=== PATIENT | male | born 1980 | race American Indian/Alaskan Native ===

== ENCOUNTER 2018-05-30 13:47 | Inpatient (IN) | payer MEDICAID ==
--- NOTE | 2018-05-30 14:18 | Emergency Department Report ---
Chief Complaint: Chest Pain Stated Complaint: CHEST PAIN/SOB Time Seen by Provider: 05/30/18 14:13 - HPI History of Present Illness: CARDIAC CATH RECENT WITH R HEART FAILURE CATH SHOWED NO OBSTRUCTION OF ARTERIES CP STARTED LAST PM PALPITATIONS WAS JUST DC 1 W AGO FROM HOSP IN [facility] ? NOK FATHER WHO IS UPSTAIRS WITH MOM WHO IS PT NO CIG NO ETOH NO DRUGS PMH CHF ASTHMA RX LOSARTAN SPIRONL. ASA FORGETS OTHERS TACHYCARDIA/TACHYPNEA CP SOB TO MAIN MSE screening note: Focused history and physical exam performed. Due to findings the following was ordered: ED Disposition for MSE Condition: Stable
[2018-05-30 14:50] LABS: Basophils # (Auto) 0.1 K/mm3 (0.0-0.1); Basophils % (Auto) 0.7 % (0.0-1.8); Eosinophils # (Auto) 0.1 K/mm3 (0.0-0.4); Eosinophils % (Auto) 1.7 % (0.0-4.3); Hematocrit 37.2 % (35.5-45.6); Lymphocytes % (Auto) 25.4 % (13.4-35.0); Mean Corpuscular HGB Conc 32 % (32-34); Mean Corpuscular Volume 83 fl (84-94); Monocytes # (Auto) 0.8 K/mm3 (0.0-0.8); Monocytes % (Auto) 10.4 % (0.0-7.3); Platelet Count 378 K/mm3 (140-440); Red Blood Count 4.51 M/mm3 (3.65-5.03); Red Cell Distribution Width 18.3 % (13.2-15.2)
[2018-05-30 14:58] LABS: Alanine Aminotransferase 27 units/L (7-56); Albumin 3.9 g/dL (3.9-5); BUN/Creatinine Ratio 12; Blood Urea Nitrogen 14 mg/dL (9-20); Calcium 8.9 mg/dL (8.4-10.2); Hemolysis Index 3
[2018-05-30] MEDS ORDERED: LASIX IV ONE (15:01)
--- NOTE | 2018-05-30 15:07 | Emergency Department Report ---
HPI - General Chief Complaint: Chest Pain Time Seen by Provider: 05/30/18 14:13 - HPI HPI: Room 18 The patient is a 37-year-old male presenting with a chief complaint of shortness of breath and chest pain. The patient states for the past week he's had s hortness of breath as well as an increased respiratory rate and elevated heart rate especially when lying down. Patient states he has had orthopnea and abdominal swelling. The patient states he had a cardiac catheterization performed in [place] 05/21/2018 that showed an EF of 20% but no blockages. The patient states he and his family drove up from [place] ~7 hours 1 week ago. The patient states he is on spironolactone and has been compliant Location: Lungs, see above Duration: [See above] Quality: Shortness of breath Severity: Moderate Modifying factors: [see above] Context: [see above] Mode of transportation: [not driving] ED Past Medical Hx - Past Medical History Previous Medical History?: Yes Hx Hypertension: Yes Hx Congestive Heart Failure: Yes Hx Asthma: Yes - Surgical History Past Surgical History?: Yes Hx Internal Defibrillator: Yes Additional Surgical History: cardiac cath 05/21/2018 - Family History Family history: no significant - Social History Smoking Status: Current Every Day Smoker (1 pack per day) Substance Use Type: None (denies illicit drug use) ED Review of Systems ROS: Stated complaint: CHEST PAIN/SOB Other details as noted in HPI Constitutional: denies: diaphoresis Eyes: denies: eye pain ENT: denies: throat pain Respiratory: orthopnea, shortness of breath Cardiovascular: chest pain Endocrine: no symptoms reported Gastrointestinal: abdominal pain Genitourinary: denies: dysuria Musculoskeletal: denies: back pain Neurological: denies: headache Physical Exam - Physical Exam Vital Signs: Vital Signs 05/30/18 14:13 Temperature 98.1 F Pulse Rate 104 H Respiratory 24 Rate Blood Pressure 146/115 O2 Sat by Pulse 97 Oximetry Physical Exam: GENERAL: The patient is well-developed well-nourished male lying on stretcher not appearing to be in acute distress. [] HEENT: Normocephalic. Atraumatic. Extraocular motions are intact. Patient has moist mucous membranes. NECK: Supple. No meningitic signs are noted. There is no adenopathy noted. CHEST/LUNGS: Crackles at the left base. There is no respiratory distress noted. HEART/CARDIOVASCULAR: Regular. There is no tachycardia. There is no gallop rub or murmur. ABDOMEN: Abdomen is soft, nontender. Patient has normal bowel sounds. There is no abdominal distention. SKIN: There is no rash. There is trace bilateral lower extremity pitting edema. There is no diaphoresis. NEURO: The patient is awake, alert, and oriented. The patient is cooperative. The patient has normal speech MUSCULOSKELETAL: There is no evidence of acute injury. ED Course Vital Signs 05/30/18 14:13 Temperature 98.1 F Pulse Rate 104 H Respiratory 24 Rate Blood Pressure 146/115 O2 Sat by Pulse 97 Oximetry ED Medical Decision Making - Lab Data Result diagrams: 05/30/18 14:25 05/30/18 14:25 Laboratory Tests 05/30/18 05/30/18 05/30/18 14:25 14:25 14:25 WBC 7.8 RBC 4.51 Hgb 12.0 Hct 37.2 MCV 83 L MCH 27 L MCHC 32 RDW 18.3 H Plt Count 378 Lymph % (Auto) 25.4 [place] % (Auto) 10.4 H Eos % (Auto) 1.7 Baso % (Auto) 0.7 Lymph # 2.0 [place] # 0.8 Eos # 0.1 Baso # 0.1 Seg Neutrophils % 61.8 Seg Neutrophils # 4.8 PT 13.3 INR 0.95 APTT 27.1 D-Dimer 238.43 H Sodium 141 Potassium 4.1 Chloride 107.8 H Carbon Dioxide 22 Anion Gap 15 BUN 14 Creatinine 1.2 Estimated GFR > 60 BUN/Creatinine Ratio 12 Glucose 131 H Calcium 8.9 Total Bilirubin 0.30 AST 19 ALT 27 Alkaline Phosphatase 78 Total Creatine Kinase 212 H Troponin T < 0.010 NT-Pro-B Natriuret Pep 2880 H Total Protein 6.7 Albumin 3.9 Albumin/Globulin Ratio 1.4 - EKG Data -: EKG Interpreted by Me EKG shows normal: sinus rhythm Rate: tachycardia (107 bpm) - EKG Data When compared to previous EKG there are: previous EKG unavailable Interpretation: nonspecific ST-T wave dereje (T-wave inversion in lead aVL) - Radiology Data Radiology results: image reviewed (chest x-ray) interpreted by me: Chest x-ray-no focal infiltrate, no pneumothorax - Differential Diagnosis CHF exacerbation, PE, pericarditis, GERD Critical care attestation.: If time is entered above; I have spent that time in minutes in the direct care of this critically ill patient, excluding procedure time. ED Disposition Clinical Impression: CHF exacerbation, Tachycardia Disposition: OP ADMIT IP TO THIS HOSP Is pt being admited?: Yes Does the pt Need Aspirin: Yes Condition: Fair Time of Disposition: 15:22 (hospitalist notified (Dr Lowe))
[2018-05-30 15:12] LABS: INR 0.95 (0.87-1.13)
[2018-05-30 15:13] LABS: Partial Thromboplastin Time 27.1 Sec. (24.2-36.6)
[2018-05-30] MEDS ORDERED: ASPIRIN PO ONE (15:23)
--- NOTE | 2018-05-30 15:55 | XRay Report ---
PROCEDURE: XR CHEST ROUTINE 2V TECHNIQUE: PA and lateral views of the chest were obtained. HISTORY: Chest Pain COMPARISONS: FINDINGS: Heart is enlarged. The pulmonary vasculature is not distended. No evidence of pulmonary edema or pleu ral effusion. No infiltrates or masses are identified. There is mild hyperinflation. Dual chamber pac emaker implanted on the left side of the chest. No acute bone abnormalities are identified. IMPRESSION: Cardiomegaly. Mild hyperinflation suggests underlying COPD. Dual-chamber pacemaker in place. No acute abnormalities are identified. This document is electronically signed by Hay Aldridge MD., May 30 2018 03:53:37 PM ET
[2018-05-30 16:07] LABS: Bilirubin,Urine NEG (Negative); Blood,Urine NEG (Negative); Color,Urine Straw (Yellow); RBC,Urine < 1.0 /HPF (0.0-6.0); Urobilinogen,Urine < 2.0 mg/dL (<2.0); WBC,Urine < 1.0 /HPF (0.0-6.0)
[2018-05-30] MEDS ORDERED: TYLENOL PO PRN (16:54)
[2018-05-30] MEDS ORDERED: SODIUM CHLORIDE FLUSH SYRINGE 10 ML IV PRN (16:54)
[2018-05-30] MEDS ORDERED: ZOFRAN IV PRN (16:54)
[2018-05-30] MEDS ORDERED: PROVENTIL IH PRN (16:54)
--- NOTE | 2018-05-30 16:54 | History and Physical Report ---
History of Present Illness Chief complaint: I ambrocio breathe History of present illness: 37 YO Male with Systolic CHF (EF 20%), HTN, Asthma, Obesity Hypoventilation, Noncompliant with CPAP, Nicotine Dependence presents to ED for evaluation. Pt resides in [place] and is visiting his local family. Pt has experienced short ness of breath over the past 7 days with worsening symptoms over the past 2 days. Pt acknowledges Orthopnea/PND, Decreased exercise tolerance, Dypsnea on exertion, Dypsnea at rest, Feeling bloated, leg edema, nonproductive cough, as well as chest discomfort after coughing episodes. Pt is S/P Cardiac cath with subsequent pacemaker placement 1 week ago in [place]. Pt transported to [facility] ED via private vehicle. Pt seen and evaluated in ED and found to have CHF Decompensation, Acute Respiratory Failure. Cardiology consulted in ED. Pt admitted to telemetry and initiated on CHF protocol. Pt found to have elevated D dimer in ED. CTA chest ordered and is pending at time of admission. No prior admissions for review. No listed medication for reconciliation. Pt denies fever, chills, palpitations, NVD, productive cough, BRBPR, hemoptysis. Pt acknowledges prolonged travel over the past 1 week. Past History Past Medical History: heart failure, other (Obesity Hypoventilation Syndrome, HTN) Past Surgical History: Other (cardiac cath, ICD placement) Social history: single, smoking Family history: hypertension Medications and Allergies Allergies Allergy/AdvReac Type Severity Reaction Status Date / Time No Known Allergies Allergy Verified 05/30/18 14:17 Review of Systems Constitutional: no weight loss, no weight gain, no fever, no chills Ears, nose, mouth and throat: no ear pain, no ear discharge, no tinnitis, no decreased hearing, no nose pain Cardiovascular: orthopnea, shortness of breath, dyspnea on exertion, paroxysmal nocturnal dyspnea, high blood pressure, leg edema, decreased exercise tolerance, no chest pain, no palpitations, no rapid/irregular heart beat Respiratory: no cough, no cough with sputum, no excessive sputum, no hemoptysis Gastrointestinal: no abdominal pain, no nausea, no vomiting, no diarrhea, no constipation Genitourinary Male: no hematuria, no flank pain, no discharge, no urinary frequency, no urinary hesitancy Rectal: no pain, no incontinence, no bleeding Musculoskeletal: no neck stiffness, no neck pain, no shooting arm pain, no arm numbness/tingling, no low back pain, no shooting leg pain Integumentary: no rash, no pruritis, no redness, no sores, no wounds Neurological: no transient paralysis, no paralysis, no weakness, no parathesias, no numbness, no tingling Psychiatric: no anxiety, no memory loss, no change in sleep habits, no sleep disturbances, no insomnia, no hypersomnia Hematologic/Lymphatic: no easy bruising, no easy bleeding Allergic/Immunologic: no urticaria, no allergic rhinitis, no wheezing Exam - Constitutional Vitals: Temp Pulse Resp BP Pulse Ox 98.5 F 101 H 29 H 155/111 98 05/30/18 15:43 05/30/18 15:43 05/30/18 15:43 05/30/18 15:43 05/30/18 15:43 General appearance: Present: mild distress - EENT Eyes: Present: PERRL ENT: hearing intact, clear oral mucosa - Neck Neck: Present: supple, normal ROM - Respiratory Respiratory effort: normal Respiratory: bilateral: diminished, rhonchi - Cardiovascular Heart Sounds: Present: S1 & S2. Absent: rub, click - Extremities Extremities: pulses symmetrical Extremity abnormal: edema Peripheral Pulses: within normal limits - Abdominal General gastrointestinal: Present: soft, non-tender, non-distended, normal bowel sounds Male genitourinary: Present: normal - Integumentary Integumentary: Present: clear, warm, dry - Musculoskeletal Musculoskeletal: gait normal, strength equal bilaterally - Psychiatric Psychiatric: appropriate mood/affect, intact judgment & insight - Neurologic Neurologic: CNII-XII intact, moves all extremities Results - Labs CBC & Chem 7: 05/30/18 14:25 05/30/18 14:25 Labs: Abnormal lab results 05/30/18 05/30/18 05/30/18 Range/Units 14:25 14:25 14:25 MCV 83 L (84-94) fl MCH 27 L (28-32) pg RDW 18.3 H (13.2-15.2) % [place] % (Auto) 10.4 H (0.0-7.3) % D-Dimer 238.43 H (0-234) ng/mlDDU Chloride 107.8 H (98-107) mmol/L Glucose 131 H (75-100) mg/dL Total Creatine Kinase 212 H (55-170) units/L NT-Pro-B Natriuret Pep 2880 H (0-450) pg/mL Assessment and Plan - Patient Problems (1) Respiratory failure Status: Acute Qualifiers: Chronicity: acute Respiratory failure complication: hypoxia Qualified Code(s): J96.01 - Acute respiratory failure with hypoxia Plan to address problem: Supplemental oxygen, nebulizer therapy, NIPPV as clinically indicated, pulse oximetry, chest x ray, CTA chest, D dimer, (2) Obesity hypoventilation syndrome Status: Acute Plan to address problem: supplemental oxygen, nebulizer therapy, NIPPV, increased physical activity/ balanced diet at discharge (3) HTN (hypertension) Status: Acute Qualifiers: Hypertension type: essential hypertension Qualified Code(s): I10 - E ssential (primary) hypertension Plan to address problem: Monitor bp q shift, continue prehospital antihypertensive therapy, (4) CHF exacerbation Status: Acute Qualifiers: Heart failure type: systolic Qualified Code(s): I50.23 - Acute on chronic systolic (congestive) heart failure Plan to address problem: CHF Protocol: Admit to telemetry, Strict I/O, Daily weight, monitor uop q shift, afterload reduction, YAW Inhibitior, B shane therapy, cardiology consulted in ED, diuresis, supplemental oxygen. (5) DVT prophylaxis Status: Acute Plan to address problem: SCD to BLE while in bed, prophylactic lovenox.
[2018-05-30] MEDS ORDERED: APRESOLINE IV PRN (17:29)
--- NOTE | 2018-05-30 18:20 | Cat Scan Report ---
PROCEDURE: CT ANGIO CHEST TECHNIQUE: Computerized tomographic angiography of the chest was performed after the IV injection of iodinated nonionic contrast including image processing. The image data was postprocessed using 2-di mensional multiplanar reformatted (MPR) and 3-dimensional (MIP and/or volume rendered) techniques. Au tomated exposure control, adjustment of mA and/or kV according to patient size, or iterative reconstr uction dose optimization techniques were utilized. HISTORY: dypsnea' COMPARISONS: None . FINDINGS: Heart and pericardium: Left-sided AICD noted. Thoracic aorta: Normal. Pulmonary vasculature: No evidence for acute pulmonary embolus. Lymph nodes: No enlarged thoracic lymph nodes. Lungs: Normal. Pleural space: No effusion, thickening, or pneumothorax. Musculoskeletal structures: No significant abnormality. Upper abdominal structures: Multiple gallstones visualized. No CT evidence for acute cholecystitis. IMPRESSION: No evidence for acute pulmonary embolus. Multiple gallstones. This document is electronically signed by Vincent Mcdonough MD., May 30 2018 06:18:36 PM ET
[2018-05-30] MEDS: ZESTRIL PO SCH (18:28)
[2018-05-30] MEDS: LASIX IV SCH (18:28)
[2018-05-30 18:53] LABS: Free T4 (Free Thyroxine) 1.11 ng/dL (0.76-1.46)
[2018-05-30] MEDS ORDERED: PERCOCET 5/325 PO ONE (19:42)
[2018-05-30] MEDS ORDERED: PERCOCET 5/325 ONE (19:54)
[2018-05-30] MEDS ORDERED: LOPRESSOR ONE (22:36)
[2018-05-30] MEDS ORDERED: LOVENOX SUB-Q ONE (22:37)
[2018-05-30] MEDS: LOPRESSOR PO SCH (22:58)
[2018-05-30] MEDS: LOVENOX SUB-Q SCH (22:59)
[2018-05-30] MEDS: SODIUM CHLORIDE FLUSH SYRINGE 10 ML IV SCH (22:59)
[2018-05-31 05:26] LABS: BUN/Creatinine Ratio 11; Blood Urea Nitrogen 17 mg/dL (9-20); Calcium 8.9 mg/dL (8.4-10.2); Hemolysis Index 6
[2018-05-31] MEDS: LASIX IV SCH ×2 (07:10→17:57)
--- NOTE | 2018-05-31 11:42 | Progress Note ---
Assessment and Plan Assessment and plan: Acute hypoxemic respiratory failure. Etiology is multifactorial secondary to COPD exacerbation, CHF exacerbation and JOSE ANTONIO/OHS. Chest x-ray reveals cardiomegaly with mild hyperinflation suggestive of underlying COPD. Dual- chamber pacemaker in place. Patient does have Elevated d-dimer but CTA is negative for PE. Continue O2 and BiPAP as clinically indicated. Acute on chronic systolic heart failure. EF reported at 20%. Obtain old records from [place]. Strict I/O, Daily weight, monitor uop q shift, afterload reduction, YAW Inhibitior, B shane therapy, cardiology consulted in ED, diuresis, supplemental oxygen. Acute COPD exacerbation. Add low-dose systemic steroids, continue bronchodilat ors/nebulizer treatment OHS/JOSE ANTONIO. supplemental oxygen, nebulizer therapy, NIPPV, increased physical activity/ balanced diet at discharge Hypertension. Continue and Test medications. Tobacco abuse. Counseled on tobacco cessation. History Interval history: 37 YO Male with Systolic CHF (EF 20%), HTN, Asthma, Obesity Hypoventilation, Noncompliant with CPAP, Nicotine Dependence presents to ED for evaluation. Pt resides in [place] and is visiting his local family. Pt has experienced shortness of breath over the past 7 days with worsening symptoms over the past 2 days. Pt acknowledges Orthopnea/PND, Decreased exercise tolerance, Dypsnea on exertion, Dypsnea at rest, Feeling bloated, leg edema, nonproductive cough, as well as chest discomfort after coughing episodes. Pt is S/P Cardiac cath with subsequent pacemaker placement 1 week ago in [place]. Patient still complains of chest pain and shortness of breath since admission. Hospitalist Physical - Constitutional Vitals: Temp Pulse Resp BP Pulse Ox 98.5 F 102 H 20 147/82 100 05/31/18 09:31 05/31/18 09:24 05/31/18 09:24 05/31/18 09:24 05/31/18 09:24 General appearance: Present: no acute distress - EENT Eyes: Present: PERRL, EOM intact ENT: hearing intact, clear oral mucosa, dentition normal - Neck Neck: Present: supple, normal ROM - Respiratory Respiratory effort: normal Respiratory: bilateral: diminished, rales - Cardiovascular Rhythm: regular Heart Sounds: Present: S1 & S2. Absent: gallop, rub - Extremities Extremities: no ischemia, No edema, Full ROM - Abdominal General gastrointestinal: soft, non-tender, non-distended, normal bowel sounds - Integumentary Integumentary: Present: clear, warm, dry - Neurologic Neurologic: CNII-XII intact, moves all extremities Results - Labs CBC & Chem 7: 05/30/18 14:25 05/31/18 04:12 Labs: Laboratory Last Values WBC 7.8 K/mm3 (4.5-11.0) 05/30/18 14:25 RBC 4.51 M/mm3 (3.65-5.03) 05/30/18 14:25 Hgb 12.0 gm/dl (11.8-15.2) 05/30/18 14:25 Hct 37.2 % (35.5-45.6) 05/30/18 14:25 MCV 83 fl (84-94) L 05/30/18 14:25 MCH 27 pg (28-32) L 05/30/18 14:25 MCHC 32 % (32-34) 05/30/18 14:25 RDW 18.3 % (13.2-15.2) H 05/30/18 14:25 Plt Count 378 K/mm3 (140-440) 05/30/18 14:25 Lymph % (Auto) 25.4 % (13.4-35.0) 05/30/18 14:25 [place] % (Auto) 10.4 % (0.0-7.3) H 05/30/18 14:25 Eos % (Auto) 1.7 % (0.0-4.3) 05/30/18 14:25 Baso % (Auto) 0.7 % (0.0-1.8) 05/30/18 14:25 Lymph # 2.0 K/mm3 (1.2-5.4) 05/30/18 14:25 [place] # 0.8 K/mm3 (0.0-0.8) 05/30/18 14:25 Eos # 0.1 K/mm3 (0.0-0.4) 05/30/18 14:25 Baso # 0.1 K/mm3 (0.0-0.1) 05/30/18 14:25 Seg Neutrophils % 61.8 % (40.0-70.0) 05/30/18 14:25 Seg Neutrophils # 4.8 K/mm3 (1.8-7.7) 05/30/18 14:25 PT 13.3 Sec. (12.2-14.9) 05/30/18 14:25 INR 0.95 (0.87-1.13) 05/30/18 14:25 APTT 27.1 Sec. (24.2-36.6) 05/30/18 14:25 D-Dimer 238.43 ng/mlDDU (0-234) H 05/30/18 14:25 Sodium 143 mmol/L (137-145) 05/31/18 04:12 Potassium 3.7 mmol/L (3.6-5.0) 05/31/18 04:12 Chloride 105.5 mmol/L (98-107) 05/31/18 04:12 Carbon Dioxide 24 mmol/L (22-30) 05/31/18 04:12 Anion Gap 17 mmol/L 05/31/18 04:12 BUN 17 mg/dL (9-20) 05/31/18 04:12 Creatinine 1.5 mg/dL (0.8-1.5) 05/31/18 04:12 Estimated GFR > 60 ml/min 05/31/18 04:12 BUN/Creatinine Ratio 11 % 05/31/18 04:12 Glucose 155 mg/dL (75-100) H 05/31/18 04:12 POC Glucose 114 (70-105) H 05/31/18 09:17 Calcium 8.9 mg/dL (8.4-10.2) 05/31/18 04:12 Magnesium 2.10 mg/dL (1.7-2.3) 05/30/18 17:32 Total Bilirubin 0.30 mg/dL (0.1-1.2) 05/30/18 14:25 AST 19 units/L (5-40) 05/30/18 14:25 ALT 27 units/L (7-56) 05/30/18 14:25 Alkaline Phosphatase 78 units/L (35-129) 05/30/18 14:25 Total Creatine Kinase 212 units/L (55-170) H 05/30/18 14:25 Troponin T < 0.010 ng/mL (0.00-0.029) 05/30/18 19:16 NT-Pro-B Natriuret Pep 2880 pg/mL (0-450) H 05/30/18 14:25 Total Protein 6.7 g/dL (6.3-8.2) 05/30/18 14:25 Albumin 3.9 g/dL (3.9-5) 05/30/18 14:25 Albumin/Globulin Ratio 1.4 % 05/30/18 14:25 TSH 6.620 mlU/mL (0.270-4.200) H 05/30/18 17:32 Free T4 1.11 ng/dL (0.76-1.46) 05/30/18 17:32 Urine Color Straw (Yellow) 05/30/18 15:52 Urine Turbidity Clear (Clear) 05/30/18 15:52 Urine pH 6.0 (5.0-7.0) 05/30/18 15:52 Ur Specific [place] 1.008 (1.003-1.030) 05/30/18 15:52 Urine Protein 100 mg/dl mg/dL (Negative) 05/30/18 15:52 Urine Glucose (UA) Neg mg/dL (Negative) 05/30/18 15:52 Urine Ketones Neg mg/dL (Negative) 05/30/18 15:52 Urine Blood Neg (Negative) 05/30/18 15:52 Urine Nitrite Neg (Negative) 05/30/18 15:52 Urine Bilirubin Neg (Negative) 05/30/18 15:52 Urine Urobilinogen < 2.0 mg/dL (<2.0) 05/30/18 15:52 Ur Leukocyte Esterase Neg (Negative) 05/30/18 15:52 Urine WBC (Auto) < 1.0 /HPF (0.0-6.0) 05/30/18 15:52 Urine RBC (Auto) < 1.0 /HPF (0.0-6.0) 05/30/18 15:52 Active Medications - Current Medications Current Medications: Generic Name Dose Route Start Last Admin Trade Name Freq PRN Reason Stop Dose Admin Acetaminophen 650 mg 05/30/18 16:54 Tylenol PO Q4H PRN Pain MILD(1-3)/Fever >100.5/[place] Albuterol 2.5 mg 05/30/18 16:54 Proventil IH Q4H PRN Shortness Of Breath Enoxaparin Sodium 40 mg 05/30/18 22:00 05/30/18 22:59 Lovenox SUB-Q 40 mg QDAY@2200 [place] Administration Furosemide 20 mg 05/30/18 18:00 05/31/18 07:10 Lasix IV 20 mg BID@0600,1800 [place] Administration Hydralazine HCl 10 mg 05/30/18 17:29 Apresoline IV Q8H PRN SBP > 150 Lisinopril 5 mg 05/30/18 18:00 05/30/18 18:28 Zestril PO 5 mg QDAY [place] Administration Metoprolol Tartrate 12.5 mg 05/30/18 22:00 05/30/18 22:58 Lopressor PO 12.5 mg BID [place] Administration Ondansetron HCl 4 mg 05/30/18 16:54 Zofran IV Q8H PRN Nausea And Vomiting Sodium Chloride 10 ml 05/30/18 22:00 05/30/18 22:59 Sodium Chloride Flush Syringe 10 Ml IV 10 ml BID [place]ON Administration Sodium Chloride 10 ml 05/30/18 16:54 Sodium Chloride Flush Syringe 10 Ml IV PRN PRN LINE FLUSH
[2018-05-31] MEDS: LOPRESSOR PO SCH ×2 (11:51→22:12)
[2018-05-31] MEDS: ZESTRIL PO SCH (11:51)
[2018-05-31] MEDS: SODIUM CHLORIDE FLUSH SYRINGE 10 ML IV SCH ×2 (11:52→22:13)
--- NOTE | 2018-05-31 12:41 | Consultation ---
History of Present Illness Consult date: 05/31/18 Consult reason: congestive heart failure History of present illness: 57 year old -[place] male presenting with shortness of breath. Patient was transported from [place] and is status post a cardiac cath which was done the week ago followed by insertion of ICD. Chest external presentation shows evidence of COPD but no overt signs of heart failure. Past History Past Medical History: heart failure, other (Obesity Hypoventilation Syndrome, HTN) Past Surgical History: Other (cardiac cath, ICD placement) Social history: single, smoking Family history: hypertension Medications and Allergies Allergies Allergy/AdvReac Type Severity Reaction Status Date / Time No Known Allergies Allergy Verified 05/30/18 14:17 Active Meds: Active Medications Acetaminophen (Tylenol) 650 mg PO Q4H PRN PRN Reason: Pain MILD(1-3)/Fever >100.5/[place] Albuterol (Proventil) 2.5 mg IH Q4H PRN PRN Reason: Shortness Of Breath Enoxaparin Sodium (Lovenox) 40 mg SUB-Q QDAY@2200 [facility] Last Admin: 05/30/18 22:59 Dose: 40 mg Documented by: Furosemide (Lasix) 20 mg IV BID@0600,1800 [facility] Last Admin: 05/31/18 07:10 Dose: 20 mg Documented by: Hydralazine HCl (Apresoline) 10 mg IV Q8H PRN PRN Reason: SBP > 150 Lisinopril (Zestril) 5 mg PO QDAY [facility] Last Admin: 05/31/18 11:51 Dose: 5 mg Documented by: Methylprednisolone Sodium Succinate (Solu-Medrol) 40 mg IV Q12H [facility] Metoprolol Tartrate (Lopressor) 12.5 mg PO BID [facility] Last Admin: 05/31/18 11:51 Dose: 12.5 mg Documented by: Ondansetron HCl (Zofran) 4 mg IV Q8H PRN PRN Reason: Nausea And Vomiting Sodium Chloride (Sodium Chloride Flush Syringe 10 Ml) 10 ml IV BID [facility] Last Admin: 05/31/18 11:52 Dose: 10 ml Documented by: Sodium Chloride (Sodium Chloride Flush Syringe 10 Ml) 10 ml IV PRN PRN PRN Reason: LINE FLUSH Review of Systems Cardiovascular: orthopnea Physical Examination Vital Signs Temp Pulse Resp BP Pulse Ox 98.1 F 104 H 24 146/115 97 05/30/18 14:13 05/30/18 14:13 05/30/18 14:13 05/30/18 14:13 05/30/18 14:13 General appearance: no acute distress, well-nourished HEENT: Positive: PERRL, Mucus Membranes Moist Neck: Positive: neck supple, trachea midline Cardiac: Positive: Reg Rate and Rhythm, S1/S2. Negative: Audible Murmur Lungs: Positive: clear to auscultation, Normal Breath Sounds Neuro: Positive: Grossly Intact Abdomen: Positive: Soft, Active Bowel Sounds. Negative: Tender, Distended Male genitourinary: Positive: normal Skin: Positive: Clear Incision: Cardiac Cath Site Musculoskeletal: No Pain, Normal Range of Motion Extremities: Present: normal. Absent: edema Results 05/30/18 14:25 05/31/18 04:12 Cardiac Enzymes 05/30/18 Range/Units 14:25 AST 19 (5-40) units/L Coagulation 05/30/18 Range/Units 14:25 PT 13.3 (12.2-14.9) Sec. INR 0.95 (0.87-1.13) APTT 27.1 (24.2-36.6) Sec. CBC 05/30/18 Range/Units 14:25 WBC 7.8 (4.5-11.0) K/mm3 RBC 4.51 (3.65-5.03) M/mm3 Hgb 12.0 (11.8-15.2) gm/dl Hct 37.2 (35.5-45.6) % Plt Count 378 (140-440) K/mm3 Lymph # 2.0 (1.2-5.4) K/mm3 [place] # 0.8 (0.0-0.8) K/mm3 Eos # 0.1 (0.0-0.4) K/mm3 Baso # 0.1 (0.0-0.1) K/mm3 Comprehensive Metabolic Panel 05/30/18 05/31/18 Range/Units 14:25 04:12 Sodium 141 143 (137-145) mmol/L Potassium 4.1 3.7 (3.6-5.0) mmol/L Chloride 107.8 H 105.5 (98-107) mmol/L Carbon Dioxide 22 24 (22-30) mmol/L BUN 14 17 (9-20) mg/dL Creatinine 1.2 1.5 (0.8-1.5) mg/dL Glucose 131 H 155 H (75-100) mg/dL Calcium 8.9 8.9 (8.4-10.2) mg/dL AST 19 (5-40) units/L ALT 27 (7-56) units/L Alkaline Phosphatase 78 (35-129) units/L Total Protein 6.7 (6.3-8.2) g/dL Albumin 3.9 (3.9-5) g/dL EKG interpretations - Telemetry EKG Rhythm: Sinus Rhythm Assessment and Plan 1. Chronic combined systolic and diastolic heart failure 2. Dilated Non-ischemic cardiomyopathy LV ejection fraction 20% 3. Status post a ICD in October 4. Chronic obstructive pulmonary disease 5. Sleep apnea not compliant on CPAP machine 6. Essential hypertension 7. Obesity Plan. Patient is currently stable and denies any cardiac symptoms. We will need to obtain all records from his hospitalization in [place]. We shall obtain an echocardiogram. to assess global and regional LV function
[2018-05-31] MEDS: SOLU-Medrol IV SCH (14:43)
[2018-05-31] MEDS: LOVENOX SUB-Q SCH (22:13)
[2018-06-01] MEDS: SOLU-Medrol IV SCH ×2 (01:34→15:03)
[2018-06-01] MEDS: LASIX IV SCH ×2 (05:49→19:22)
--- NOTE | 2018-06-01 10:00 | Progress Note ---
Assessment and Plan Assessment and plan: Acute hypoxemic respiratory failure. Etiology is multifactorial secondary to COPD exacerbation, CHF exacerbation and JOSE ANTONIO/OHS. Chest x-ray reveals cardiomegaly with mild hyperinflation suggestive of underlying COPD. Dual- chamber pacemaker in place. Patient does have Elevated d-dimer but CTA is negative for PE. Continue O2 and BiPAP as clinically indicated. Acute on chronic systolic heart failure. EF reported at 20%. Obtain old records from [place]. Patient was seen at [facility] in [facility]. Strict I/O, Daily weight, monitor uop q shift, afterload reduction, YAW Inhibitior, B shane therapy, continue diuresis, supplemental oxygen. Cardiology consulted AICD. Patient with recent AICD insertion ago in [place] Acute COPD exacerbation. Continue systemic steroids, bronchodilators/nebulizer treatments OHS/JOSE ANTONIO. supplemental oxygen, nebulizer therapy, NIPPV, increased physical activity/ balanced diet at discharge Hypertension. Continue and Test medications. Tobacco abuse. Counseled on tobacco cessation. History Interval history: 37 YO Male with Systolic CHF (EF 20%), HTN, Asthma, Obesity Hypoventilation, Noncompliant with CPAP, Nicotine Dependence presents to ED for evaluation. Pt resides in [place] and is visiting his local family. Pt has experienced shortness of breath over the past 7 days with worsening symptoms over the past 2 days. Pt acknowledges Orthopnea/PND, Decreased exercise tolerance, Dypsnea on exertion, Dypsnea at rest, Feeling bloated, leg edema, nonproductive cough, as well as chest discomfort after coughing episodes. Pt is S/P Cardiac cath with subsequent pacemaker placement 1 week ago in [place]. Patient still complains of chest pain and shortness of breath since admission. Hospitalist Physical - Constitutional Vitals: Temp Pulse Resp BP Pulse Ox 98.1 F 93 H 20 130/94 99 06/01/18 03:31 06/01/18 07:42 06/01/18 03:31 06/01/18 07:42 06/01/18 07:42 General appearance: Present: no acute distress, well-nourished - EENT Eyes: Present: PERRL, EOM intact ENT: hearing intact, clear oral mucosa, dentition normal - Neck Neck: Present: supple, normal ROM - Respiratory Respiratory effort: normal Respiratory: bilateral: CTA - Cardiovascular Rhythm: regular Heart Sounds: Present: S1 & S2. Absent: gallop, rub - Extremities Extremities: no ischemia, No edema, Full ROM - Abdominal General gastrointestinal: soft, non-tender, non-distended, normal bowel sounds - Integumentary Integumentary: Present: clear, warm, dry - Neurologic Neurologic: CNII-XII intact, moves all extremities Results - Labs CBC & Chem 7: 05/30/18 14:25 05/31/18 04:12 Labs: Laboratory Last Values WBC 7.8 K/mm3 (4.5-11.0) 05/30/18 14:25 RBC 4.51 M/mm3 (3.65-5.03) 05/30/18 14:25 Hgb 12.0 gm/dl (11.8-15.2) 05/30/18 14:25 Hct 37.2 % (35.5-45.6) 05/30/18 14:25 MCV 83 fl (84-94) L 05/30/18 14:25 MCH 27 pg (28-32) L 05/30/18 14:25 MCHC 32 % (32-34) 05/30/18 14:25 RDW 18.3 % (13.2-15.2) H 05/30/18 14:25 Plt Count 378 K/mm3 (140-440) 05/30/18 14:25 Lymph % (Auto) 25.4 % (13.4-35.0) 05/30/18 14:25 [place] % (Auto) 10.4 % (0.0-7.3) H 05/30/18 14:25 Eos % (Auto) 1.7 % (0.0-4.3) 05/30/18 14:25 Baso % (Auto) 0.7 % (0.0-1.8) 05/30/18 14:25 Lymph # 2.0 K/mm3 (1.2-5.4) 05/30/18 14:25 [place] # 0.8 K/mm3 (0.0-0.8) 05/30/18 14:25 Eos # 0.1 K/mm3 (0.0-0.4) 05/30/18 14:25 Baso # 0.1 K/mm3 (0.0-0.1) 05/30/18 14:25 Seg Neutrophils % 61.8 % (40.0-70.0) 05/30/18 14:25 Seg Neutrophils # 4.8 K/mm3 (1.8-7.7) 05/30/18 14:25 PT 13.3 Sec. (12.2-14.9) 05/30/18 14:25 INR 0.95 (0.87-1.13) 05/30/18 14:25 APTT 27.1 Sec. (24.2-36.6) 05/30/18 14:25 D-Dimer 238.43 ng/mlDDU (0-234) H 05/30/18 14:25 Sodium 143 mmol/L (137-145) 05/31/18 04:12 Potassium 3.7 mmol/L (3.6-5.0) 05/31/18 04:12 Chloride 105.5 mmol/L (98-107) 05/31/18 04:12 Carbon Dioxide 24 mmol/L (22-30) 05/31/18 04:12 Anion Gap 17 mmol/L 05/31/18 04:12 BUN 17 mg/dL (9-20) 05/31/18 04:12 Creatinine 1.5 mg/dL (0.8-1.5) 05/31/18 04:12 Estimated GFR > 60 ml/min 05/31/18 04:12 BUN/Creatinine Ratio 11 % 05/31/18 04:12 Glucose 155 mg/dL (75-100) H 05/31/18 04:12 POC Glucose 272 (70-105) H 05/31/18 22:21 Calcium 8.9 mg/dL (8.4-10.2) 05/31/18 04:12 Magnesium 2.10 mg/dL (1.7-2.3) 05/30/18 17:32 Total Bilirubin 0.30 mg/dL (0.1-1.2) 05/30/18 14:25 AST 19 units/L (5-40) 05/30/18 14:25 ALT 27 units/L (7-56) 05/30/18 14:25 Alkaline Phosphatase 78 units/L (35-129) 05/30/18 14:25 Total Creatine Kinase 212 units/L (55-170) H 05/30/18 14:25 Troponin T < 0.010 ng/mL (0.00-0.029) 05/30/18 19:16 NT-Pro-B Natriuret Pep 2880 pg/mL (0-450) H 05/30/18 14:25 Total Protein 6.7 g/dL (6.3-8.2) 05/30/18 14:25 Albumin 3.9 g/dL (3.9-5) 05/30/18 14:25 Albumin/Globulin Ratio 1.4 % 05/30/18 14:25 TSH 6.620 mlU/mL (0.270-4.200) H 05/30/18 17:32 Free T4 1.11 ng/dL (0.76-1.46) 05/30/18 17:32 Urine Color Straw (Yellow) 05/30/18 15:52 Urine Turbidity Clear (Clear) 05/30/18 15:52 Urine pH 6.0 (5.0-7.0) 05/30/18 15:52 Ur Specific [place] 1.008 (1.003-1.030) 05/30/18 15:52 Urine Protein 100 mg/dl mg/dL (Negative) 05/30/18 15:52 Urine Glucose (UA) Neg mg/dL (Negative) 05/30/18 15:52 Urine Ketones Neg mg/dL (Negative) 05/30/18 15:52 Urine Blood Neg (Negative) 05/30/18 15:52 Urine Nitrite Neg (Negative) 05/30/18 15:52 Urine Bilirubin Neg (Negative) 05/30/18 15:52 Urine Urobilinogen < 2.0 mg/dL (<2.0) 05/30/18 15:52 Ur Leukocyte Esterase Neg (Negative) 05/30/18 15:52 Urine WBC (Auto) < 1.0 /HPF (0.0-6.0) 05/30/18 15:52 Urine RBC (Auto) < 1.0 /HPF (0.0-6.0) 05/30/18 15:52 Active Medications - Current Medications Current Medications: Generic Name Dose Route Start Last Admin Trade Name Freq PRN Reason Stop Dose Admin Acetaminophen 650 mg 05/30/18 16:54 Tylenol PO Q4H PRN Pain MILD(1-3)/Fever >100.5/STAFFORD Albuterol 2.5 mg 05/30/18 16:54 Proventil IH Q4H PRN Shortness Of Breath Enoxaparin Sodium 40 mg 05/30/18 22:00 05/31/18 22:13 Lovenox SUB-Q 40 mg QDAY@2200 NAPOLEON Administration Furosemide 20 mg 05/30/18 18:00 06/01/18 05:49 Lasix IV 20 mg BID@0600,1800 NAPOLEON Administration Hydralazine HCl 10 mg 05/30/18 17:29 Apresoline IV Q8H PRN SBP > 150 Lisinopril 5 mg 05/30/18 18:00 05/31/18 11:51 Zestril PO 5 mg QDAY NAPOLEON Administration Methylprednisolone Sodium Succinate 40 mg 05/31/18 14:00 06/01/18 01:34 Solu-Medrol IV 40 mg Q12H NAPOLEON Administration Metoprolol Tartrate 12.5 mg 05/30/18 22:00 05/31/18 22:12 Lopressor PO 12.5 mg BID NAPOLEON Administration Ondansetron HCl 4 mg 05/30/18 16:54 Zofran IV Q8H PRN Nausea And Vomiting Sodium Chloride 10 ml 05/30/18 22:00 05/31/18 22:13 Sodium Chloride Flush Syringe 10 Ml IV 10 ml BID NAPOLEON Administration Sodium Chloride 10 ml 05/30/18 16:54 Sodium Chloride Flush Syringe 10 Ml IV PRN PRN LINE FLUSH
[2018-06-01] MEDS: LOPRESSOR PO SCH ×2 (11:05→22:15)
[2018-06-01] MEDS: ZESTRIL PO SCH (11:05)
[2018-06-01] MEDS: SODIUM CHLORIDE FLUSH SYRINGE 10 ML IV SCH ×2 (11:07→22:17)
--- NOTE | 2018-06-01 12:18 | Progress Note ---
Assessment and Plan Acute systolic heart failure s/t noncompliance with medications no evidence of PE by CTA Nonischemic Cardiomyopathy EF 20% per pt Presence of AICD Hypertension Diabetes mellitus Await records from [place]. Patient reports extensive invasive cardiac workup 1 week ago while hospitalized at a hospital in [place]. Continue medical therapy for nonischemic cardiomyopathy. Subjective Date of service: 06/01/18 Interval history: Patient appears anxious. Reports shortness of breath and palpitations. No events on telemetry overnight. Stable sinus rhythm. Objective Vital Signs Temp Pulse Resp BP Pulse Ox 06/01/18 07:42 93 H 130/94 99 06/01/18 05:00 95 H 06/01/18 03:31 98.1 F 92 H 20 125/87 90 05/31/18 23:37 98.5 F 102 H 22 146/101 95 05/31/18 23:20 98 H 28 H 98 05/31/18 23:00 99 H 96 05/31/18 22:12 96 H 154/84 05/31/18 22:02 96 05/31/18 20:37 97.2 F L 96 H 20 154/84 96 05/31/18 17:20 98.3 F 103 H 20 129/100 84 05/31/18 15:47 102 H - Physical Examination General: No Apparent Distress HEENT: Positive: PERRL Neck: Positive: trachea midline Cardiac: Positive: Reg Rate and Rhythm Lungs: Positive: Decreased Breath Sounds Neuro: Positive: Grossly Intact Abdomen: Positive: Soft, Active Bowel Sounds Extremities: Absent: edema
[2018-06-01] MEDS: LOVENOX SUB-Q SCH (22:15)
[2018-06-01] MEDS: HumaLOG SUB-Q SCH (22:16)
[2018-06-02] MEDS: SOLU-Medrol IV SCH (01:41)
[2018-06-02] MEDS: LASIX IV SCH (06:03)
[2018-06-02 06:45] LABS: Hemoglobin 12.1 gm/dl (11.8-15.2); Mean Corpuscular HGB Conc 32 % (32-34); Mean Corpuscular Volume 82 fl (84-94); Platelet Count 463 K/mm3 (140-440); Red Blood Count 4.63 M/mm3 (3.65-5.03); Red Cell Distribution Width 18.5 % (13.2-15.2)
[2018-06-02 07:12] LABS: BUN/Creatinine Ratio 15; Blood Urea Nitrogen 21 mg/dL (9-20); Calcium 8.7 mg/dL (8.4-10.2); Hemolysis Index 23
[2018-06-02 07:35] VITALS: BP 138/89
[2018-06-02 08:56] LABS: Basophils % (Manual) 0 % (0.0-1.8); Eosinophils % (Manual) 0 % (0.0-4.3); Target Cells Rare; Total Cells Counted 100
[2018-06-02 08:57] LABS: Ovalocytes Few; Platelet Estimate Consistent w Auto
[2018-06-02] MEDS: HumaLOG SUB-Q SCH (09:10)
[2018-06-02] MEDS: LOPRESSOR PO SCH (09:11)
[2018-06-02] MEDS: ZESTRIL PO SCH (09:11)
[2018-06-02] MEDS: SODIUM CHLORIDE FLUSH SYRINGE 10 ML IV SCH (09:12)
--- NOTE | 2018-06-02 10:47 | Discharge Summary ---
Providers - Providers Date of Admission: 05/30/18 16:54 Date of discharge: 06/02/18 Attending physician: FATIMAH GONZALEZ MD 05/30/18 17:23 Consult to Cardiology [CONS] Routine Consulting Provider: CHRISTI HARMAN Reason For Exam: chf Primary care physician: [employer] Hospitalization Reason for admission: systolic CHF exacerbation Condition: Stable Pertinent studies: CXR CTA Hospital course: 37 YO Male with Systolic CHF (EF 20%), HTN, Asthma, Obesity Hypoventilation, Noncompliant with CPAP, Nicotine Dependence presents to ED for evaluation. Pt resides in [place] and is visiting his local family. Pt has experienced shortness of breath over the past 7 days with worsening symptoms over the past 2 days. Pt acknowledges Orthopnea/PND, Decreased exercise tolerance, Dypsnea on exertion, Dypsnea at rest, Feeling bloated, leg edema, nonproductive cough, as well as chest discomfort after coughing episodes. Pt is S/P Cardiac cath with subsequent pacemaker placement 1 week ago in [place]. Pt transported to [facility] ED via private vehicle. Pt seen and evaluated in ED and found to have CHF Decompensation, Acute Respiratory Failure. Cardiology consulted in ED. Pt admitted to telemetry and initiated on CHF protocol. Pt found to have elevated D dimer in ED. CTA chest ordered and is pending at time of admission. No prior admissions for review. No listed medication for reconciliation. Pt denies fever, chills, palpitations, NVD, productive cough, BRBPR, hemoptysis. Pt acknowledges prolonged travel over the past 1 week. patient was admitted to the floor and managed appropriately for CHF exacerbation and discharged home in a stable condition. patient's patient's questions and concerns were addressed at the bedside. We get his record from [facility] and cath was done showed clean coronaries, with EF of 15-20%. patient has AICD. 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 Disposition: - TO HOME OR SELFCARE Time spent for discharge: 32 minutes - Discharge Diagnoses (1) CHF exacerbation Status: Chronic Qualifiers: Heart failure type: systolic Qualified Code(s): I50.23 - Acute on chronic systolic (congestive) heart failure (2) Tachycardia Status: Acute (3) Obesity hypoventilation syndrome Status: Chronic (4) Respiratory failure Status: Acute Qualifiers: Chronicity: acute Respiratory failure complication: hypoxia Qualified Code(s): J96.01 - Acute respiratory failure with hypoxia Core Measure Documentation - Palliative Care Palliative Care/ Comfort Measures: Not Applicable - Core Measures Any of the following diagnoses?: heart failure - Heart Failure Discharge Requirements YAW/ARB for LVSD if EF <40%: Yes Beta shane at discharge: Yes Exam - Physical Exam Narrative exam: Not in cardiopulmonary distress. The patient is morbidly obese. Vital signs as documented. Head exam is unremarkable. No scleral icterus . Neck is without jugular venous distension, thyromegaly, or carotid bruits. Lungs are clear to auscultation. Cardiac exam reveals regular rate and Rhythm. First and second heart sounds normal. No murmurs, rubs or gallops. Abdominal exam reveals normal bowel sounds, no masses, no organomegaly and no aortic enlargement. Extremities are nonedematous and both femoral and pedal pulses are normal. CARRIER PACKER: Alert and oriented 3. No focal weakness. - Constitutional Vitals: Temp Pulse Resp BP Pulse Ox 97.9 F 70 22 138/89 99 06/02/18 07:34 06/02/18 09:11 06/02/18 07:34 06/02/18 07:34 06/02/18 09:55 Plan Activity: no restrictions Weight Bearing Status: Full Weight Bearing Diet: low cholesterol, low salt Additional Instructions: Patient is from [place] and said he'll follow with cardiology, pulmonary, psychiatry and PCP over there Follow up with: PRIMARY CARE, [Primary Care Provider] - 7 Days Prescriptions: Insulin Glargine,Hum.rec.anlog [Lantus] 100 unit SQ QHS #1 vial Furosemide [Lasix] 20 mg PO BID #60 tablet Metoprolol [Lopressor TAB] 12.5 mg PO BID #60 tablet Lisinopril [Zestril TAB] 5 mg PO QDAY #60 tablet
--- NOTE | 2018-06-02 11:05 | Progress Note ---
Assessment and Plan Acute systolic heart failure s/t noncompliance with medications no evidence of PE by CTA Hx of Nonischemic Cardiomyopathy Just last week, he was at a [facility] where a cardiac catheterization done via the right radial approach reported no coronary artery disease, but nonischemic cardiomyopathy with ejection fraction 20%. Presence of AICD Hypertension Diabetes mellitus Continue medical therapy for nonischemic cardiomyopathy. Stable cardiac agrawal. Subjective Date of service: 06/02/18 Interval history: Patient appears comfortable. No events on telemetry monitoring. Objective Vital Signs Temp Pulse Resp BP BP Pulse Ox 06/02/18 09:55 99 06/02/18 09:11 70 06/02/18 07:34 97.9 F 70 22 138/89 97 06/02/18 05:07 97.6 F 06/02/18 05:06 97 H 20 151/76 96 06/02/18 05:00 99 H 06/02/18 00:15 98.2 F 96 H 20 93/50 99 06/02/18 00:13 98 H 99 06/01/18 22:39 98 06/01/18 22:35 98 06/01/18 22:15 100 H 133/92 06/01/18 21:00 101 H 06/01/18 20:25 97 06/01/18 19:58 102 H 96 06/01/18 19:55 98.8 F 18 133/92 06/01/18 17:01 100 H 140/105 97 - Physical Examination General: No Apparent Distress HEENT: Positive: PERRL Neck: Positive: trachea midline Cardiac: Positive: Reg Rate and Rhythm Neuro: Positive: Grossly Intact Extremities: Absent: edema - Labs and Meds CBC 06/02/18 Range/Units 06:20 WBC 18.7 H (4.5-11.0) K/mm3 RBC 4.63 (3.65-5.03) M/mm3 Hgb 12.1 (11.8-15.2) gm/dl Hct 38.0 (35.5-45.6) % Plt Count 463 H (140-440) K/mm3 Comprehensive Metabolic Panel 06/02/18 Range/Units 06:20 Sodium 140 (137-145) mmol/L Potassium 5.0 D (3.6-5.0) mmol/L Chloride 101.9 (98-107) mmol/L Carbon Dioxide 23 (22-30) mmol/L BUN 21 H (9-20) mg/dL Creatinine 1.4 (0.8-1.5) mg/dL Glucose 402 H (75-100) mg/dL Calcium 8.7 (8.4-10.2) mg/dL
== END 2018-06-02 12:42 | disposition home or self-care (01) | DRG 291 ==
LOC: ED 13:47 → 4A 16:54
PROVIDERS: ADMIT Internal Medicine; ATTEND Internal Medicine
PROC: 5A09357 Assistance with Respiratory Ventilation, Less than 24 Consecutive Hours, Continuous Positive Airway Pressure (ICD-10-PCS; principal; 2018-05-31)
PROC: 5A09357 Assistance with Respiratory Ventilation, Less than 24 Consecutive Hours, Continuous Positive Airway Pressure (ICD-10-PCS; 2018-05-31)
DX: I11.0 Hypertensive heart disease with heart failure (principal); J96.01 Acute respiratory failure with hypoxia; E66.2 Morbid (severe) obesity with alveolar hypoventilation; I50.43 Acute on chronic combined systolic (congestive) and diastolic (congestive) heart failure; J45.909 Unspecified asthma, uncomplicated; J44.1 Chronic obstructive pulmonary disease with (acute) exacerbation; I42.0 Dilated cardiomyopathy; F17.210 Nicotine dependence, cigarettes, uncomplicated; Z91.19 Patient's noncompliance with other medical treatment and regimen; Z68.42 Body mass index [BMI] 45.0-49.9, adult; Z82.49 Family history of ischemic heart disease and other diseases of the circulatory system; Z95.810 Presence of automatic (implantable) cardiac defibrillator; Z71.6 Tobacco abuse counseling
CPT/HCPCS: 36415; 71046; 71275; 80048; 80053; 81001; 82550; 82962; 83735; 83880; 84439; 84443; 84484; 85007; 85025; 85379; 85610; 85730; 93005; 93010; 94660; 94760; 99406; G0378; J1650; J1815; J1940; J2920; Q9967